=== PATIENT | female | born 1970 | race Caucasian/White ===

== ENCOUNTER 2018-06-12 05:19 | Emergency (ER) | payer OTHER ==
[~2018-06-12] VITALS: Ht 157.5 cm; Wt 59.0 kg
[~2018-06-12 05:19] MED LIST: METF500T PO
[2018-06-12 05:23] VITALS: BP 101/68
[2018-06-12] MEDS ORDERED: NACL 0.9% 1,000 ML IV SCH (06:01)
[2018-06-12] MEDS ORDERED: MORPHINE SULFATE 4 MG/ML SYR IVP ONE (06:05)
[2018-06-12] MEDS ORDERED: ONDANSETRON 4 MG/2 ML VIAL IVP ONE (06:05)
[2018-06-12 06:34] LABS: BASOPHILS % (AUTO) 0.6 % (0.0-2.0); EOSINOPHILS # (AUTO) 0.3 K/uL (0-0.4); EOSINOPHILS % (AUTO) 4.3 % (0.0-4.0); HEMATOCRIT 37.9 % (36-48); HEMOGLOBIN 12.7 g/dL (12.0-16.0); LYMPHOCYTES # (AUTO) 3.1 K/uL (2.5-16.5); LYMPHOCYTES % (AUTO) 40.9 % (20.5-51.1); MEAN CORPUSCULAR HEMOGLOBIN 30 pg (27-31); MEAN CORPUSCULAR HGB CONC 34 g/dL (33-37); MEAN CORPUSCULAR VOLUME 88.2 fL (80-94); MONOCYTES # (AUTO) 0.4 K/uL (0.8-1.0); MONOCYTES % (AUTO) 5.4 % (1.7-9.3); NEUTROPHILS # (AUTO) 3.7 K/uL (1.8-7.7); NEUTROPHILS % (AUTO) 48.8 % (42.2-75.2); PLATELET COUNT (AUTO) 256 K/uL (140-450); RED BLOOD CELL COUNT(AUTO) 4.29 MIL/uL (4.20-5.40); RED CELL DISTRIBUTION WIDTH 14.4 % (11.6-13.7); WHITE BLOOD COUNT (AUTO) 7.5 K/uL (4.8-10.8)
[2018-06-12] MEDS ORDERED: MORPHINE SULFATE 2 MG/ML SYR ONE (06:37)
[2018-06-12 06:55] LABS: ANION GAP 10.8 (8-16); CARBON DIOXIDE 27.2 mmol/L (21-32); CREATININE 0.8 mg/dL (0.6-1.3)
[2018-06-12 07:00] LABS: ALBUMIN 3.2 g/dL (3.4-5.0); TOTAL BILIRUBIN 0.3 mg/dL (0.0-1.0)
[2018-06-12 07:42] VITALS: BP 105/69
== END 2018-06-12 07:42 | disposition home or self-care (01) ==
LOC: MED 05:19
DX: R10.30 Lower abdominal pain, unspecified (principal); R19.7 Diarrhea, unspecified; E86.0 Dehydration; E11.65 Type 2 diabetes mellitus with hyperglycemia; Z79.84 Long term (current) use of oral hypoglycemic drugs
CPT/HCPCS: 80053; 85025; 96361; 96374; 96375; 99283; J2270; J2405; 81002; 81025; J7030

== ENCOUNTER 2019-06-11 00:15 | Emergency (ER) | payer MEDICAID, OTHER ==
[~2019-06-11] VITALS: Ht 152.4 cm; Wt 59.0 kg
[2019-06-11 00:25] VITALS: BP 143/97
[2019-06-11] MEDS: KETOROLAC 30 MG/ML VIAL IVP ONE (01:15)
[2019-06-11] MEDS: NACL 0.9% 1,000 ML IV SCH (01:15)
[2019-06-11 01:22] LABS: BASOPHILS # (AUTO) 0.1 K/uL (0.00-0.22); BASOPHILS % (AUTO) 0.6 % (0.0-2.0); EOSINOPHILS # (AUTO) 0.4 K/uL (0-0.4); EOSINOPHILS % (AUTO) 4.6 % (0.0-4.0); HEMATOCRIT 36.6 % (36-48); HEMOGLOBIN 12.8 g/dL (12.0-16.0); LYMPHOCYTES # (AUTO) 4.5 K/uL (2.5-16.5); LYMPHOCYTES % (AUTO) 50.2 % (20.5-51.1); MEAN CORPUSCULAR HEMOGLOBIN 30 pg (27-31); MEAN CORPUSCULAR HGB CONC 35 g/dL (33-37); MEAN CORPUSCULAR VOLUME 86.6 fL (80-94); MONOCYTES # (AUTO) 0.5 K/uL (0.8-1.0); MONOCYTES % (AUTO) 5.6 % (1.7-9.3); NEUTROPHILS # (AUTO) 3.5 K/uL (1.8-7.7); PLATELET COUNT (AUTO) 304 K/uL (140-450); RED BLOOD CELL COUNT(AUTO) 4.23 MIL/uL (4.20-5.40); RED CELL DISTRIBUTION WIDTH 14.5 % (11.6-13.7); WHITE BLOOD COUNT (AUTO) 8.9 K/uL (4.8-10.8)
[2019-06-11 01:57] LABS: ALBUMIN 3.3 g/dL (3.4-5.0); CARBON DIOXIDE 27.6 mmol/L (21-32); CREATININE 0.7 mg/dL (0.6-1.3); POTASSIUM 3.6 mmol/L (3.5-5.1); TOTAL BILIRUBIN 0.3 mg/dL (0.0-1.0)
[2019-06-11 02:20] VITALS: BP 157/96
== END 2019-06-11 02:20 | disposition home or self-care (01) ==
LOC: MED 00:15
DX: R10.13 Epigastric pain (principal); R19.7 Diarrhea, unspecified; E11.9 Type 2 diabetes mellitus without complications; Z79.4 Long term (current) use of insulin
CPT/HCPCS: 36415; 80053; 81002; 81025; 83690; 85025; 96361; 96374; 99283; J1885

== ENCOUNTER 2019-07-07 17:10 | Emergency (ER) | payer MEDICAID, OTHER ==
[~2019-07-07] VITALS: Ht 154.9 cm; Wt 49.2 kg
[2019-07-07 17:34] VITALS: BP 97/63
--- NOTE | 2019-07-07 17:45 | NUR ---
PT ACCOMPANIED BY AND WAS SENT BY URGENT CARE D/T ELEVATED BLOOD SUGAR 370. RECHECK ON ARRIVAL 337 UPON TRIAGE. C/O ABOMINAL PAIN AND FRONTAL MASON 8/10 AND DIARRHEA FOR 3 DAYS AND DIZZY TODAY. AAOX4 WITH EVEN AND STEADY GAIT; HR EVEN AND REGULAR; PT DENIES ANY FEVER, CP, SOB, OR COUGH AT THIS TIME; PATIENT STATES PAIN OF 8/10 AT THIS TIME; VSS; PATIENT POSITIONED FOR COMFORT; HOB ELEVATED; BEDRAILS UP X1; BED DOWN. ER MD MADE AWARE OF PT STATUS. IS AT BEDSIDE. PT IS ON MONITOR TO MOITORING VITAL SIGNS. Addendum: 07/07/19 at 1806 by MED PT ALSO STATES HAVING URGENCY, FREQUENCY OF URINATION AND HEMATURIA.
--- NOTE | 2019-07-07 18:35 | NUR ---
PT IS RESTING IN BED WITH EYES OPENED AND ON MONITOR. VSS.
[2019-07-07] MEDS ORDERED: NACL 0.9% 1,000 ML IV ONE (18:40)
[2019-07-07] MEDS ORDERED: DIPHENOXYLATE /ATROPINE 2.5 MG TAB PO ONE (18:40)
--- NOTE | 2019-07-07 19:15 | NUR ---
Report received from JEFFREY Chahal.
--- NOTE | 2019-07-07 19:15 | NUR ---
Pt report given to JEFFREY Knapp. Transfer of care at this time.
[2019-07-07 19:20] LABS: BASOPHILS # (AUTO) 0.1 K/uL (0.00-0.22); BASOPHILS % (AUTO) 0.8 % (0.0-2.0); EOSINOPHILS # (AUTO) 0.3 K/uL (0-0.4); EOSINOPHILS % (AUTO) 3.6 % (0.0-4.0); HEMATOCRIT 36.6 % (36-48); HEMOGLOBIN 12.4 g/dL (12.0-16.0); LYMPHOCYTES # (AUTO) 4.8 K/uL (2.5-16.5); LYMPHOCYTES % (AUTO) 53.1 % (20.5-51.1); MEAN CORPUSCULAR HEMOGLOBIN 30 pg (27-31); MEAN CORPUSCULAR HGB CONC 34 g/dL (33-37); MEAN CORPUSCULAR VOLUME 87.1 fL (80-94); MONOCYTES # (AUTO) 0.4 K/uL (0.8-1.0); MONOCYTES % (AUTO) 4.4 % (1.7-9.3); NEUTROPHILS # (AUTO) 3.4 K/uL (1.8-7.7); NEUTROPHILS % (AUTO) 38.1 % (42.2-75.2); PLATELET COUNT (AUTO) 301 K/uL (140-450); RED CELL DISTRIBUTION WIDTH 14.4 % (11.6-13.7)
[2019-07-07 19:57] LABS: ANION GAP 10.8 (8-16); CARBON DIOXIDE 29.2 mmol/L (21-32); CREATININE 0.7 mg/dL (0.6-1.3)
[2019-07-07 20:01] LABS: ALBUMIN 3.5 g/dL (3.4-5.0); TOTAL BILIRUBIN 0.3 mg/dL (0.0-1.0)
--- NOTE | 2019-07-07 20:18 | NUR ---
patient sitting quietly in bed. at bedside. will continue to monitor.
[2019-07-07 20:32] VITALS: BP 159/89
--- NOTE | 2019-07-07 20:32 | NUR ---
Patient discharged with v/s stable. Written and verbal after care instructions given and explained. Patient alert, oriented and verbalized understanding of instructions. Ambulatory with steady gait. All questions addressed prior to discharge. ID band removed. Patient advised to follow up with PMD. Rx of Lomotil given. Patient educated on indication of medication including possible reaction and side effects. Opportunity to ask questions provided and answered.
--- NOTE | 2019-07-10 12:16 | NUR ---
Late entry. Confirmed with RN that 0.9 NS IV was completed at 1950
== END 2019-07-07 20:32 | disposition home or self-care (01) ==
LOC: MED 17:10
DX: R19.7 Diarrhea, unspecified (principal); E11.65 Type 2 diabetes mellitus with hyperglycemia; I10 Essential (primary) hypertension; Z79.899 Other long term (current) drug therapy
CPT/HCPCS: 36415; 80053; 81002; 81025; 85025; 96360; 99283; J7030

== ENCOUNTER 2019-10-22 14:27 | Emergency (ER) | payer OTHER, SELFPAY ==
[~2019-10-22] VITALS: Ht 160 cm; Wt 47.6 kg
[2019-10-22 14:29] VITALS: BP 154/90
--- NOTE | 2019-10-22 14:30 | NUR ---
PT TAKEN TO BED 10 FROM THE TENT FOR COVID ISOLATION PRECAUTIONS.
--- NOTE | 2019-10-22 14:35 | NUR ---
Pt presents to the ED for evaluation of a 4-day history of acute onset of fever and chills, cough, sore throat, body aches, fatigue, decreased appetite. Per patient, her fever was between 101-102 degrees at home, relieved with Mortin. Also c/o lower abdominal pain without tenderness on palpation. Denies diarrhea, nausea, vomiting, sick contacts, or recent travel. PATIENT STATES PAIN OF 5/10 AT THIS TIME; VSS; PATIENT POSITIONED FOR COMFORT; HOB ELEVATED; BEDRAILS UP X2; BED DOWN. ER MD MADE AWARE OF PT STATUS. Patient is on monitor and in the isolation room.
--- NOTE | 2019-10-22 14:54 | NUR ---
DR. SIN AT BEDSIDE.
[2019-10-22] MEDS ORDERED: ACETAMINOPHEN 325 MG TAB PO ONE (15:00)
[2019-10-22] MEDS ORDERED: NACL 0.9% 1,000 ML IV ONE (15:05)
--- NOTE | 2019-10-22 15:15 | NUR ---
PT IS RESTING IN THE BED ON THE MONITOR, IN ISOLATION ROOM. VSS.
[2019-10-22 15:52] LABS: BASOPHILS % (AUTO) 0.4 % (0.0-2.0); HEMOGLOBIN 11.9 g/dL (12.0-16.0); LYMPHOCYTES # (AUTO) 1.9 K/uL (2.5-16.5); LYMPHOCYTES % (AUTO) 21.2 % (20.5-51.1); MEAN CORPUSCULAR HEMOGLOBIN 29 pg (27-31); MEAN CORPUSCULAR HGB CONC 34 g/dL (33-37); MEAN CORPUSCULAR VOLUME 86.1 fL (80-94); MONOCYTES # (AUTO) 0.5 K/uL (0.8-1.0); MONOCYTES % (AUTO) 5.9 % (1.7-9.3); NEUTROPHILS # (AUTO) 6.6 K/uL (1.8-7.7); NEUTROPHILS % (AUTO) 72.5 % (42.2-75.2); PLATELET COUNT (AUTO) 269 K/uL (140-450); RED BLOOD CELL COUNT(AUTO) 4.06 MIL/uL (4.20-5.40); RED CELL DISTRIBUTION WIDTH 14.2 % (11.6-13.7); WHITE BLOOD COUNT (AUTO) 9.1 K/uL (4.8-10.8)
[2019-10-22 15:55] LABS: BILIRUBIN,URINE NEGATIVE (NEGATIVE); BLOOD, URINE 1+ (NEGATIVE); COLOR,URINE YELLOW (YELLOW); LEUKOCYTE ESTERASE ,URINE 2+ (NEGATIVE); NITRITE, URINE NEGATIVE (NEGATIVE); PH,URINE 5.5 (5.0-9.0); UGLUCOSE TRACE (NEGATIVE)
[2019-10-22 15:57] LABS: APPEARANCE,URINE CLOUDY (CLEAR)
[2019-10-22 16:08] LABS: ALBUMIN 2.4 g/dL (3.4-5.0); ANION GAP 13.4 (8-16); CREATININE 0.9 mg/dL (0.6-1.3); POTASSIUM 4.4 mmol/L (3.5-5.1); TOTAL BILIRUBIN 0.4 mg/dL (0.0-1.0)
[2019-10-22 16:26] LABS: PROTHROMBIN TIME 9.3 secs (10.8-13.4)
--- NOTE | 2019-10-22 16:28 | NUR ---
PT HAS 101.1 FEVER, DR. SIN NOTIFIED. TWO ICE PACKS PROVIDED TO PATIENT.
[2019-10-22] MEDS ORDERED: IBUPROFEN 600 MG TAB PO ONE (16:35)
[2019-10-22] MEDS ORDERED: cefTRIAXone 1,000 MG VIAL ONE (16:48)
[2019-10-22 17:29] LABS: RBC,URINE >100 /HPF (0-5); WBC,URINE 0-5 /HPF (0-5)
--- NOTE | 2019-10-22 17:45 | NUR ---
PT IS ABLE TO AMBULATE AROUND BED FOR ONE MINUTE IN ROOM AIR WITH OXYGEN SAT 94-97%, HR 68-78. NO REPIRATORY DISTRESS, TACHYCARDIA, ACCESSORY MUSLCE USE, OR SOB NOTICED DURING THE WALKING TEST. DR. SIN NOTIFIED.
[2019-10-22 18:22] VITALS: BP 136/81
--- NOTE | 2019-10-22 18:22 | NUR ---
Patient discharged with v/s stable. Written and verbal after care instructions given and explained. Patient alert, oriented and verbalized understanding of instructions. Ambulatory with steady gait. All questions addressed prior to discharge. ID band removed. Patient advised to follow up with PMD in 3-5 days. Rx of Keflex, Tessalon, and Albuterol given. Patient educated on indication of medication including possible reaction and side effects. Opportunity to ask questions provided and answered. Informed pt needs to follow up with ED doctor in 24-48 hrs for recheck. covid-19 package provided.
--- NOTE | 2019-10-24 10:12 | NUR ---
called [facility] #[phone] for new rx augmentin 875mg po bid.
== END 2019-10-22 18:22 | disposition home or self-care (01) ==
LOC: EEVIPCON 14:27 → MED 14:27
DX: U07.1 COVID-19 (principal); R50.9 Fever, unspecified; R05 Cough; J02.9 Acute pharyngitis, unspecified; E11.9 Type 2 diabetes mellitus without complications; I10 Essential (primary) hypertension; Z79.899 Other long term (current) drug therapy
CPT/HCPCS: 36415; 36600; 71045; 80053; 81001; 81025; 82803; 83605; 84484; 85025; 85610; 87040; 87086; 87635; 93005; 96365; 99285; J0696; J7030; 99283; 99284

== ENCOUNTER 2022-02-21 06:00 | Emergency (ER) | payer OTHER ==
[~2022-02-21] VITALS: Ht 157.5 cm; Wt 50.3 kg
[~2022-02-21 06:00] MED LIST changes: +METF-346 PO; -METF500T PO
[2022-02-21 06:05] VITALS: BP 144/90
--- NOTE | 2022-02-21 06:11 | NUR ---
patient to wait in lobby
[2022-02-21] MEDS ORDERED: NAPR-54 PO (07:08)
[2022-02-21] MEDS ORDERED: AMOX1TAB8 PO (07:08)
--- NOTE | 2022-02-21 07:12 | NUR ---
PT DISCHARGED BY DR MARTINEZ. Patient discharged with v/s stable. Written and verbal after care instructions ABOUT [employer] MEDIA given and explained. Patient alert, oriented and verbalized understanding of instructions. Ambulatory with steady gait. All questions addressed prior to discharge. ID band removed. Patient advised to follow up with PMD. Rx of AMOXICILLIN/POTASSIUM CLAV AND NAPROXEN given. Patient educated on indication of medication including possible reaction and side effects. Opportunity to ask questions provided and answered.
== END 2022-02-21 07:12 | disposition home or self-care (01) ==
LOC: MED 06:00
DX: H65.191 Other acute nonsuppurative otitis media, right ear (principal); E11.9 Type 2 diabetes mellitus without complications; I10 Essential (primary) hypertension; Z79.899 Other long term (current) drug therapy; Z79.84 Long term (current) use of oral hypoglycemic drugs
CPT/HCPCS: 99283

== ENCOUNTER 2022-06-03 18:42 | Emergency (ER) | payer OTHER ==
[~2022-06-03] VITALS: Ht 154.9 cm; Wt 65.3 kg
[~2022-06-03 18:42] MED LIST changes: +AMOX1TAB8 PO; +NAPR-54 PO
[2022-06-03 19:45] VITALS: BP 147/87
--- NOTE | 2022-06-03 19:48 | NUR ---
TO LOBBY A/W BED AMBULATORY
--- NOTE | 2022-06-03 22:18 | NUR ---
PT TO BED #3
--- NOTE | 2022-06-03 22:26 | NUR ---
Patient BIB by family from home. C/O headache x 3 days. Patient reported, had headache, bodyache and fever for 3 days, No N/V/D.
[2022-06-03] MEDS ORDERED: MORPHINE SULFATE 4 MG/ML SYR IVP ONE (22:40)
[2022-06-03] MEDS ORDERED: ONDANSETRON 4 MG/2 ML VIAL IVP ONE (22:40)
[2022-06-03 22:46] LABS: BASOPHILS # (AUTO) 0.1 K/uL (0.00-0.22); BASOPHILS % (AUTO) 0.8 % (0.0-2.0); EOSINOPHILS # (AUTO) 0.2 K/uL (0-0.4); EOSINOPHILS % (AUTO) 2.2 % (0.0-4.0); HEMATOCRIT 32.1 % (36-48); HEMOGLOBIN 10.9 g/dL (12.0-16.0); LYMPHOCYTES # (AUTO) 2.4 K/uL (2.5-16.5); LYMPHOCYTES % (AUTO) 24.9 % (20.5-51.1); MEAN CORPUSCULAR HEMOGLOBIN 30 pg (27-31); MEAN CORPUSCULAR HGB CONC 34 g/dL (33-37); MEAN CORPUSCULAR VOLUME 88.8 fL (80-94); MONOCYTES # (AUTO) 0.6 K/uL (0.8-1.0); MONOCYTES % (AUTO) 6.7 % (1.7-9.3); NEUTROPHILS # (AUTO) 6.3 K/uL (1.8-7.7); NEUTROPHILS % (AUTO) 65.4 % (42.2-75.2); PLATELET COUNT (AUTO) 305 K/uL (140-450); RED BLOOD CELL COUNT(AUTO) 3.62 MIL/uL (4.20-5.40); RED CELL DISTRIBUTION WIDTH 15.3 % (11.6-13.7); WHITE BLOOD COUNT (AUTO) 9.7 K/uL (4.8-10.8)
--- NOTE | 2022-06-03 22:54 | NUR ---
Patient taken to CT scan via gurney.
[2022-06-03 23:07] LABS: ANION GAP 14.1 (8-16); ASPARTATE AMINOTRANSFERASE 22 U/L (15-37); CARBON DIOXIDE 24.8 mmol/L (21-32); CHLORIDE 104 mmol/L (98-107); CREATININE 1.7 mg/dL (0.6-1.3); GFR ARICAN-AMERICAN 41 mL/min (>90); GLUCOSE 173 mg/dL (74-106); POTASSIUM 4.9 mmol/L (3.5-5.1); SODIUM SERUM 138 mmol/L (136-145); TOTAL BILIRUBIN 0.4 mg/dL (0.0-1.0); UREA NITROGEN, BLOOD 40 mg/dL (7-18)
--- NOTE | 2022-06-03 23:50 | NUR ---
COVID-19 and Flu swabs collected and sent to lab.
[2022-06-04] MEDS ORDERED: KETOROLAC 15 MG/ML VIAL IVP ONE (00:20)
[2022-06-04] MEDS ORDERED: NIRM1TAB5 PO (00:23)
[2022-06-04] MEDS ORDERED: ACET-8386 PO (00:23)
--- NOTE | 2022-06-04 01:07 | NUR ---
PT CLEARED FOR DC. PT IS HYPERTENSIVE 203/104 DR WEBB AWARE. PENDING MED B/P ORDER. WILL REASSESS B/P
[2022-06-04] MEDS ORDERED: CLONIDINE HYDROCHLORIDE 0.1 MG TAB PO ONE (01:10)
--- NOTE | 2022-06-04 01:57 | NUR ---
BP 194/103
--- NOTE | 2022-06-04 02:16 | NUR ---
BP 187/106, Dr. Wang notified. Sam to D/C.
[2022-06-04 02:30] VITALS: BP 187/106
--- NOTE | 2022-06-04 02:30 | NUR ---
Patient discharged with v/s stable. Written and verbal after care instructions given and explained. Patient alert, oriented and verbalized understanding of instructions. Ambulatory with steady gait. All questions addressed prior to discharge. ID band removed. Patient advised to follow up with PMD. Rx of Paxlovid 150-100 and Hydrocodon-Acetaminophen given. Patient educated on indication of medication including possible reaction and side effects. Opportunity to ask questions provided and answered.
== END 2022-06-04 02:30 | disposition home or self-care (01) ==
LOC: MED 18:42
DX: U07.1 COVID-19 (principal); I10 Essential (primary) hypertension; E11.9 Type 2 diabetes mellitus without complications; Z79.899 Other long term (current) drug therapy; Z79.4 Long term (current) use of insulin
CPT/HCPCS: 36415; 70450; 71045; 80053; 84484; 85025; 87426; 87804; 93005; 96374; 96375; 99285; J1885; J2270; J2405; Q0092

== ENCOUNTER 2022-09-15 21:21 | Emergency (ER) | payer OTHER ==
[~2022-09-15] VITALS: Ht 154.9 cm; Wt 65.8 kg
[~2022-09-15 21:21] MED LIST changes: +ACET-8905 PO; +NIRM1TAB5 PO
[2022-09-15 21:25] VITALS: BP 130/80
--- NOTE | 2022-09-15 21:28 | NUR ---
LOWER ABD PAIN, NAUSEA, DIARRHEA FOR 3 DAYS
--- NOTE | 2022-09-15 21:28 | NUR ---
TO LOBBY A/W BED AMBULATORY
[2022-09-15 22:02] LABS: APPEARANCE,URINE CLEAR (CLEAR); BILIRUBIN,URINE NEGATIVE (NEGATIVE); BLOOD, URINE TRACE-I (NEGATIVE); COLOR,URINE YELLOW (YELLOW); LEUKOCYTE ESTERASE ,URINE TRACE (NEGATIVE); NITRITE, URINE NEGATIVE (NEGATIVE); UGLUCOSE TRACE (NEGATIVE)
[2022-09-15 22:17] LABS: RBC,URINE 0-5 /HPF (0-5)
[2022-09-15 22:18] LABS: WBC,URINE 16-25 (MOD) /HPF (0-5)
[2022-09-15] MEDS ORDERED: cephALEXin 500 MG CAP PO ONE (23:20)
[2022-09-15] MEDS ORDERED: CEPH-588 PO (23:23)
[2022-09-15] MEDS ORDERED: ACET-2619 PO (23:23)
[2022-09-16 00:23] VITALS: BP 130/80
--- NOTE | 2022-09-16 00:26 | NUR ---
Patient discharged with v/s stable. Written and verbal after care instructions given and explained. Patient verbalized understanding. Ambulatory with steady gait. All questions addressed prior to discharge. Advised to follow up with PMD. PT LEFT WOTH HER BELONGINGS
== END 2022-09-16 00:26 | disposition home or self-care (01) ==
LOC: MED 21:21
DX: N39.0 Urinary tract infection, site not specified (principal); R19.7 Diarrhea, unspecified; E11.9 Type 2 diabetes mellitus without complications; I10 Essential (primary) hypertension; Z79.899 Other long term (current) drug therapy; Z79.2 Long term (current) use of antibiotics; Z79.891 Long term (current) use of opiate analgesic; Z79.1 Long term (current) use of non-steroidal anti-inflammatories (NSAID)
CPT/HCPCS: 81001; 87086; 99283

== ENCOUNTER 2023-10-06 19:45 | Emergency (ER) | payer OTHER ==
[~2023-10-06] VITALS: Ht 165.1 cm; Wt 59.0 kg
[~2023-10-06 19:45] MED LIST changes: +ACET-2619 PO; +CEPH-588 PO; +CIPR500T4 PO
[2023-10-06 20:22] VITALS: BP 151/87; PULSE 91; RESP 16; TEMP 97.9; O2SAT 98
[2023-10-06] MEDS: PROCHLORPERAZINE 10 MG/2 ML VIAL IM ONE (22:02)
[2023-10-06] MEDS: KETOROLAC 30 MG/ML VIAL IM ONE (22:02)
[2023-10-06] MEDS ORDERED: IBUP-2213 PO (22:10)
[2023-10-06] MEDS ORDERED: AMOX-1230 PO (22:11)
[2023-10-06 22:17] VITALS: BP 151/87; PULSE 91; RESP 16; TEMP 97.9; O2SAT 98
== END 2023-10-06 22:18 | disposition home or self-care (01) ==
LOC: MED 19:45
DX: H66.91 Otitis media, unspecified, right ear (principal); G43.909 Migraine, unspecified, not intractable, without status migrainosus; E11.9 Type 2 diabetes mellitus without complications; I10 Essential (primary) hypertension; Z79.4 Long term (current) use of insulin; Z79.899 Other long term (current) drug therapy
CPT/HCPCS: 96372; 99284; J0780; J1885